=== PATIENT | male | born 1980 | race Asian ===

== ENCOUNTER 2024-04-22 01:15 | Emergency (ER) | payer OTHER ==
[~2024-04-22] VITALS: Ht 177.8 cm; Wt 90.0 kg
[2024-04-22 01:16] VITALS: O2SAT 98
[2024-04-22] MEDS: MORPHINE SULFATE 4 MG/ML INJ (FOR IV/IM USE) IV STA (02:49)
[2024-04-22] MEDS: FAMOTIDINE 20MG/2ML VIAL IV ONE (02:49)
[2024-04-22] MEDS: SODIUM CHLORIDE 0.9% 1,000 ML IV ONE (02:49)
[2024-04-22] MEDS: ONDANSETRON HCL 4MG/2ML INJ IV STA (02:49)
[2024-04-22 03:11] LABS: BASOPHILS % 0.4 % (0.0-2.0); HEMATOCRIT. 44.6 % (42.0-52.0); HEMOGLOBIN. 15.1 g/dL (14.0-18.0); LYMPHOCYTES % 8.6 % (20.0-50.0); MEAN CORPUSCULAR HEMOGLOBIN 30.6 pg (28.0-32.0); MEAN PLATELET VOLUME 7.3 fl (7.4-10.4); MONOCYTES % 7.5 % (2.0-8.0); NEUTROPHILS % 83.5 % (40.0-76.0); PLATELET 391 x1000/uL (130-400); RED BLOOD CELL COUNT 4.95 mill/uL (4.7-6.1); RED CELL DISTRIBUTION WIDTH 14.5 % (11.6-14.6); WHITE BLOOD COUNT 13.3 x1000/uL (4.5-11.0)
[2024-04-22] MEDS: METOCLOPRAMIDE HCL 10MG/2ML VIAL IV ONE ×2 (03:13→05:55)
[2024-04-22] MEDS: PANTOPRAZOLE SODIUM 40 MG/VIAL IV ONE (03:50)
[2024-04-22 03:55] LABS: TROPONIN I HIGH SENSITIVITY < 4 ng/L (3.0-53)
[2024-04-22 05:08] LABS: CHLORIDE 104 mEq/L (98-107); POTASSIUM 3.6 mEq/L (3.5-5.1); SODIUM 140 mEq/L (136-145)
[2024-04-22 05:09] LABS: CALCIUM 10.6 mg/dL (8.7-10.4); CARBON DIOXIDE 17 mEq/L (21-32)
[2024-04-22 05:14] LABS: GLUCOSE 130 mg/dL (70-105); UREA NITROGEN BLOOD 8 mg/dL (9-23)
[2024-04-22 05:16] LABS: ALANINE AMINOTRANSFERASE 20 IU/L (10-49); ALBUMIN 5.1 g/dL (3.2-4.8); ASPARTATE AMINOTRANSFERASE 20 IU/L (<34); BILIRUBIN TOTAL 1.4 mg/dL (0.1-1.0); PROTEIN TOTAL 7.9 g/dL (6.0-8.3)
[2024-04-22 12:28] VITALS: BP 180/114; PULSE 72; RESP 16; TEMP 36.78072; O2SAT 99
== END 2024-04-22 12:50 | disposition home or self-care (01) ==
LOC: ER 01:15 → EDBEDREQSVC 05:59 → EDBEDREQTM 05:59 → EDBEDREQ 05:59 → ER 12:50
DX: R10.84 Generalized abdominal pain (principal); R07.9 Chest pain, unspecified; R11.2 Nausea with vomiting, unspecified; I10 Essential (primary) hypertension
CPT/HCPCS: 99285; 74176; 96365; 96375; 71045; 96361; 96366; 80053; 83690; 85025; 84484; 36415; 93005; 96376; J3490; J2765; J2405; J2470; J2270; J7030; A4606